=== PATIENT | male | born 1990 ===

== ENCOUNTER 2017-07-11 06:16 | Day surgery (SDC) | payer BC ==
[2017-07-10 14:21] VITALS: BMI 27.3
[2017-07-11] MEDS ORDERED: Lactated Ringer's 1,000 ML IV ONE (07:04)
[2017-07-11] MEDS ORDERED: Rocuronium 10 mg/ml (5 ml) ONE (07:20)
[2017-07-11] MEDS ORDERED: Succinylcholine 200 mg/10 ml Inj IV ONE (07:20)
[2017-07-11] MEDS ORDERED: Midazolam 2 MG/2 ML VIAL ONE (07:20)
[2017-07-11] MEDS ORDERED: Propofol 10 mg/ml Inj (20 ML) ONE (07:20)
[2017-07-11] MEDS ORDERED: Bacitracin Ointment 30 GM TUBE ONE (07:28)
[2017-07-11] MEDS ORDERED: Bupivacaine 0.5% Inj(30mL) ONE (07:29)
[2017-07-11] MEDS ORDERED: Lidocaine 2% w Epi 1:100,000 Inj IJ ONE (07:29)
[2017-07-11] MEDS ORDERED: Lidocaine 1% Inj (20ml) IJ ONE ×2 (08:21)
[2017-07-11] MEDS ORDERED: Oxycodone/Acetaminophen 5/325 mg Tab PO PRN (09:34)
--- NOTE | 2017-07-11 09:38 | PCM.SURG1 ---
Surgeon's Initial Post Op Note - Surgeon's Notes Surgeon: Champ Pedersen MD Safety Equipment Testing Specialist: Vitaly Skelton PA-C Type of Anesthesia: General Endo Anesthesia Administered By: DR. 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 Patient counseled on the risks of addiction, physical or psychological dependence, and overdose associated with opioid drugs and the danger of taking opioid drugs with alcohol and other central nervous system depressants, and cautioned patient on storage and disposal.)
[2017-07-11] MEDS: HYDROmorphone 0.5 mg/0.5 ml ISec IVP PRN ×2 (09:47→10:00)
[2017-07-11 10:12] VITALS: RESP 20
[2017-07-11 10:38] VITALS: BP 123/78; PULSE 68; TEMP 97.5; O2SAT 96
--- NOTE | 2017-07-13 00:08 | OP ---
PROCEDURE DATE: 07/11/2017 PREOPERATIVE DIAGNOSES: 1. Right third digit boutonniere deformity. 2. Right third digit central slip tear. 3. Right third digit proximal interphalangeal joint subluxation. 4. Right third digit extensor tendon scar tissue and tenosynovitis. POSTOPERATIVE DIAGNOSES: 1. Right third digit boutonniere deformity. 2. Right third digit central slip tear. 3. Right third digit proximal interphalangeal joint subluxation. 4. Right third digit extensor tendon scar tissue and tenosynovitis. PROCEDURE: 1. Repair of right third digit central slip tendon, 08508. 2. Open reduction and pinning of proximal interphalangeal joints, 99244. 3. Right third digit extensor tendon tenolysis, 38178. SURGEON: Parish Pedersen M.D. NEMATOLOGY TEACHER: EDE Shepherd. TYPE OF ANESTHESIA: Digital nerve block general anesthesia. ESTIMATED BLOOD LOSS: Minimal. COMPLICATIONS: None. DISPOSITION: Stable to recovery room. SPECIMENS: None. INDICATIONS: This is a 27-year-old male who sustained an injury to his third right finger which was confirmed with central slip tear and boutonniere deformity on MRI. The patient has failed conservative therapy and elected to proceed with the surgery. Risks and benefits of the surgery were explained. The risks included, but not limited to bleeding; infection; tendon, nerve, vessel injury; instability, stiffness, motion, potential need for additional surgery in the future. The patient understands the above risks and elected to proceed. DESCRIPTION OF PROCEDURE: The patient was brought to the operating room and placed supine on the operating room table. After adequate regional anesthesia was given, a well-padded non-sterile tourniquet was placed on the patient's right upper extremity. The entire extremity was then prepped and draped in a standard surgical fashion. Prophylactic antibiotics were given. A timeout was performed. A dorsal curvilinear incision was drawn out over the PIP area. The hand was elevated and exsanguinated, the tourniquet was inflated, and Esmarch was removed. An incision was made through the skin only. All superficial veins were cauterized. Skin flaps were developed and the PIP joint was exposed. There was an extensive scar tissue formation over the extensor tendon. Local tenolysis was performed of the extensor tendon. Transverse ligament was incised from both sides of the digit. A [place] was inserted deep to the extensor tendon and tenolysis was also performed proximal and distal to the PIP joint. The PIP joint was then held in extension reduced and a 0.035 Cecille wire was placed across the joint from middle to proximal phalanx holding the reduction in place. Longitudinal incision was made over the extensor tendon and an arthrotomy was performed congruent. Then, the extensor tendon was repaired with local tissue in [id number] manner after scar tissue was removed. This was repaired with 4-0 Vicryl sutures in a horizontal mattress technique. The wound was then copiously irrigated. Tourniquet was deflated and hemostasis was obtained. It was then closed with 4-0 nylon interrupted sutures. The patient has good capillary refill to fingers. Sterile dressing was applied, followed by a digital splint. The patient tolerated the procedure well and was returned to recovery room in excellent condition. Parish Pedersen MD
== END 2017-07-11 11:20 | disposition home or self-care (01) ==
LOC: H.OPSURG 06:16
PROVIDERS: ATTEND Orthopaedic Surgery
DX: M20.021 Boutonniere deformity of right finger(s) (principal); M65.88 Other synovitis and tenosynovitis, other site
CPT/HCPCS: 26426; 26445; 26785; J0330; J0690; J1170; J2001; J2250; J2405; J2704; J3010; J7030; J7120